=== PATIENT | female | born 2000 | race Caucasian/White ===

== ENCOUNTER 2023-10-13 05:47 | Emergency (ER) | payer OTHER ==
[~2023-10-13] VITALS: Ht 162.6 cm; Wt 103.0 kg
[2023-10-13 06:21] VITALS: O2SAT 98
[2023-10-13] MEDS ORDERED: KETOROLAC 60MG/2ML VIAL IM ONE (07:45)
[2023-10-13] MEDS ORDERED: KETOROLAC 60MG/2ML VIAL IM NR (09:30)
[2023-10-13 10:37] VITALS: BP 142/90; PULSE 85; RESP 19; TEMP 97.7
== END 2023-10-13 10:38 | disposition home or self-care (01) ==
LOC: ER 05:47
DX: H60.502 Unspecified acute noninfective otitis externa, left ear (principal); H66.92 Otitis media, unspecified, left ear
CPT/HCPCS: 99285; 70486; 81025; 96372; J1885